=== PATIENT | male | born 1965 | race Caucasian/White ===

== ENCOUNTER 2017-06-12 10:28 | Day surgery (SDC) | payer BC ==
[~2017-06-12] VITALS: Ht 175.3 cm; Wt 96.2 kg
[~2017-06-12 10:28] MED LIST: AUGMENTIN500TAB PO; ECOTRIN LOW STR81 MG PO; EFFIENT10 MG PO; FISH OIL1000 M2 PO; FISH OIL600 MG PO; FOLIC ACID1 MG PO; LIPITOR40 MG PO; METOPROLOL50 M1 PO; NAPROSYN500 MG PO; PEPCID20 MG PO; VASOTEC10 MG PO; VASOTEC2.5 MG PO
[2017-06-12 13:52] VITALS: BP 125/69
== END 2017-06-12 14:08 | disposition home or self-care (01) | DRG 951 ==
LOC: ENDO 10:28
PROVIDERS: ATTEND Internal Medicine Gastroenterology
PROC: 0DBL8ZX Excision of Transverse Colon, Via Natural or Artificial Opening Endoscopic, Diagnostic (ICD-10-PCS; principal; 2017-06-12)
DX: Z12.11 Encounter for screening for malignant neoplasm of colon (principal); D12.3 Benign neoplasm of transverse colon; K64.4 Residual hemorrhoidal skin tags; K64.8 Other hemorrhoids; I10 Essential (primary) hypertension; E78.00 Pure hypercholesterolemia, unspecified

== ENCOUNTER 2022-04-15 12:12 | Emergency (ER) | payer BC ==
[2022-04-15] VITALS (10 sets, daily range): BP systolic 131–177; BP diastolic 63–85
[~2022-04-15] VITALS: Ht 175.3 cm; Wt 94.5 kg
[2022-04-15 12:33] LABS: HEMATOCRIT 46.8 % (39.0-50.0); HEMOGLOBIN 15.7 g/dl (14.0-18.0); IMMATURE GRANULOCYTES 0.4 % (0.0-5.0); MEAN CELL VOLUME 93.4 fL CALC (80.0-100.0); MEAN CORPUSCULAR HGB 31.3 pG CALC (26.0-32.0); MEAN CORPUSCULAR HGB CONC 33.5 g/dL CAL (32.0-36.0); NEUT# 10.58 thou/uL (1.82-7.42); RED BLOOD COUNT 5.01 mill/uL (4.70-6.10); RED CELL DISTRI WIDTH 13.1 % (11.5-15.5)
[2022-04-15] MEDS ORDERED: LEVOTHYROXIN50 MCG PO (12:35)
[2022-04-15 12:55] LABS: URINE BILIRUBIN - DIPSTICK NEGATIVE (NEGATIVE); URINE BLOOD DIPSTICK LARGE (NEGATIVE); URINE COLOR YELLOW; URINE GLUCOSE - DIPSTICK NEGATIVE (NEGATIVE); URINE KETONE NEGATIVE (NEGATIVE); URINE LEUK ESTERASE NEGATIVE (NEGATIVE); URINE PROTEIN - DIPSTICK NEGATIVE (NEG-TRACE); URINE SPECIFIC GRAVITY >=1.030; URINE UROBILINOGEN - DIPSTICK 0.2 E.U./dL (0.2)
[2022-04-15 12:56] LABS: URINE AMORPH SEDIMENT MANY hpf (NONE-FER); URINE NITRITE - DIPSTICK NEGATIVE (Negative)
[2022-04-15 12:57] LABS: ALBUMIN 4.5 g/dL (3.2-5.0); ALKALINE PHOSPHATASE 104 u/l (38-126); ANION GAP 18 (6-22 (CALC)); BILIRUBIN, TOTAL 0.6 mg/dL (0.0-1.4); BUN 11 mg/dL (9-20); BUN/CREATININE RATIO 12 (12-20 (CALC)); CARBON DIOXIDE 23 mmol/l (22-30); CHLORIDE 103 mmol/l (95-108); CREATININE 0.9 mg/dL (0.7-1.3); GFR FOR AFR.AMER. > 60 ML/MIN (>=60 (CALC)); GFR OTHER RACES > 60 ML/MIN (>=60 (CALC)); SGOT/AST 26 u/l (17-59); SODIUM 141 mmol/l (137-146); TOTAL PROTEIN 6.7 g/dL (6.3-8.2)
[2022-04-15] MEDS ORDERED: TORADOL PO (14:05)
[2022-04-15] MEDS ORDERED: HYDROCO/APAP1 TA9 PO (14:05)
[2022-04-15] MEDS ORDERED: TAMSULOSIN0.4 MG PO (14:05)
== END 2022-04-15 14:35 | disposition home or self-care (01) | DRG 694 ==
LOC: ED 12:12
PROVIDERS: Family Medicine
DX: N20.1 Calculus of ureter (principal)